=== PATIENT | female | born 2000 | race Caucasian/White ===

== ENCOUNTER 2024-06-09 14:56 | Emergency (ER) | payer OTHER, SELFPAY ==
[2024-06-09 14:58] VITALS: BP 146/95
--- NOTE | 2024-06-09 16:02 | ED.GENMED ---
History of Present Illness
General
Chief Complaint: Abdominal Pain
Source: patient
Exam Limitations: none
Time Seen by Provider: 06/09/24 15:51
Nursing documentation reviewed up to this point in time: agreed with
History of Present Illness
History of Present Illness:
Patient to ED with complaint of left sided abdominal pain. States she developed diarrhea on Tuesday. Since then no BM. Reports bloating and left sided burning. Denies fever/chill, vomiting. Brought to ED by sister for eval. She was seen her
approx 1 year ago with similar. Abd. CT= descending colitis. SHe was then placed on Augmentin and discharged home. No issues until this pst Tuesday.
Past History
Past History
ED Past Medical History: Other (Low blood pressure)
ED Past Surgical History: None
Social History
Tobacco: Non-smoker
Alcohol: Occasional
Drug: None
Personal: Single
Living: with family
Employment: Student (College student, [employer])
Family History
Family History: Other (Noncontributory)
Review of Systems
Review of Systems
Allergies reviewed?: Yes
All Other Systems: ROS reviewed and negative except as documented in HPI and ROS
Constitutional: Reports no symptoms
EENT: Reports no symptoms
Respiratory: Reports no symptoms
Cardiac: Reports no symptoms
ABD/GI: Reports abdominal pain (left sided abd. pain)
: Reports no symptoms
Musculoskeletal: Reports no symptoms
Skin: Reports no symptoms
Neurological: Reports no symptoms
Psychiatric: Reports no symptoms
Phy Exam
General Physical Exam
General Presentation: well appearing and no apparent distress
General age: appears stated age
General Skin: warm and dry
General Habitus: normal
Cardiovascular Exam
Cardiovascular Exam: regular rate/rhythm and no edema
Gastrointestinal Exam
Gastrointestinal Exam: normal bowel sounds, soft, no organomegaly and non distended
Palpation: left upper quadrant: Moderate tenderness, left lower quadrant: Moderate tenderness, right upper quadrant: Moderate tenderness and right lower quadrant: Minimal tenderness
Musculoskeletal Exam
Musculoskeletal Exam: full ROM and neuro vasc intact
Skin Exam
Skin Exam: normal color, warm/dry and no rash
Psychiatric Exam
Psychiatric Exam: normal mood/affect
Course
Orders/Labs/Results
Orders:
Orders
06/09/24 16:00
CT Abd/pel W Iv And Oral Contr Urgent
Comment:
Reason For Exam: left abd. pain
Iohexol [Omnipaque] See Protocol PO NOW STA
Test Result ONCE
06/09/24 16:14
Complete Blood Count/With Diff Urgent
Comprehensive Metabolic Panel Urgent
HCG, Serum Qualitative Screen Urgent
Lipase Urgent
Urinalysis Reflex To Culture Urgent
Date Specimen was Collected: 06/09/24
Time Specimen was Collected: 16:03
Urine Microscopic Reflex Cult Urgent
Abnormal Lab Results
06/09/24
16:14
Absolute Monos (auto) 0.7 H 10^3/uL
(0.1-0.6)
Monocytes % 12.5 H %
(1.7-9.3)
AST 39 H U/L
(14-36)
ALT 49 H U/L
(0-35)
Ur Occult Blood Reflex Trace A
(Negative)
Urine Urobilinogen 2+ A
(Neg - 1+)
Urine Bacteria (Reflex) Few A
(Negative)
06/09/24 16:14
06/09/24 16:14
Vital Signs
Initial and Last Documented VS:
Initial Vital Signs
Temp Pulse Resp BP Pulse Ox
98.6 F 102 16 146/95 98
06/09/24 14:58 06/09/24 14:58 06/09/24 14:58 06/09/24 14:58 06/09/24 14:58
Last Documented Vital Signs
Temp Pulse Resp BP Pulse Ox
98.6 F 96 16 128/84 98
06/09/24 14:58 06/09/24 19:23 06/09/24 20:00 06/09/24 19:23 06/09/24 19:23
MDM/Problems Addressed
Differential Diagnosis Includes:
Patient to ED with compliant of abd. bloating, left sided abd. discomfort. Labs, CT reviewed. + Enteritis. Discussed findings with her. Will discharge home, recommend bland diet, increased fluid intake. Will follow upwith PCP. Given number for
GI follow up. Given instructions on s/s to return to ED and she is agreeable to plan.
*Radiology
Radiology exam reviewed: radiology read reviewed
*Pulse Oximetry
Patient hypoxic: no
*Critical Care Note
Total Time (30-74mins, 75-104mins- exclusive of procedures): Not Applicable
ED Attending Note
-
Portions of this chart may have been created with voice recognition software.� Occasional wrong word or��sound alike� substitutions may have occurred due to the inherent limitations of voice recognition software.
Discharge Plan
Departure
Patient Disposition: Home (Routine Discharge)
Date of Disposition: 06/09/24
Time of Disposition: 19:52
Patient with high blood pressure during this ER visit?: No
Condition: Good
Covid-19: Not Applicable
Discharge Problem:
Enteritis
Instructions: [place] Diet, Acute Diarrhea
Prescriptions:
No Action
levonorgestrel-ethinyl estrad [Junito (28)] 1 EACH tablet
1 ea PO DAILY
ibuprofen 600 MG tablet
600 mg PO QIDPRN PRN (Reason: pain, fever, take with food.) Qty: 30 0RF
Referrals:
Alida Marina MD [Active] - Next open appointment
UNKNOWN - PT DOES,NOT KNOW [Family Provider] -
Activity Restrictions/Additional Instructions:
Return to the emergency department immediately for any changes in/worsening of your symptoms
Interventions
Interventions:
*Risk Screen - Suicide Last Done: 06/09/24 14:58
*General Assessment Last Done: 06/09/24 15:58
*Neglect/Abuse Screening Last Done: 06/09/24 14:58
ED- Fall Risk Assessment Last Done: 06/09/24 15:56
*Nursing Disposition Last Done: 06/09/24 20:15
TJ-Wuttfn-Wngqjbavyf Assessment Last Done: 06/09/24 15:56
Discharge Date and Time
Discharge Date/Time: 06/09/24 20:16
Print Language: GREEK
[2024-06-09] MEDS: OMNIPAQUE 50 ML PO (16:15)
[2024-06-09 16:19] VITALS: BMI 25.2
[2024-06-09 16:25] LABS: % Basophils 0.6 % (0-2); % Eosinophils 2.9 % (0-6); % Immature Granulocytes 0.2 % (0-0.5); % Monocytes 12.5 % (1.7-9.3); % Neutrophils 58.8 % (42.2-75.2); Absolute Eosinophils 0.2 10^3/uL (0-0.7); Absolute Lymphocytes 1.4 10^3/uL (1.2-3.4); Absolute Monocytes 0.7 10^3/uL (0.1-0.6); Absolute Neutrophils 3.2 10^3/uL (1.4-6.5); Hematocrit 41.1 % (37.0-47.0); Mean Corp Hgb Conc. 34.1 g/dL (33.0-37.0); Mean Corpuscular Hgb 30.1 pg (27.0-31.0); Mean Corpuscular Volume 88.4 fL (81.0-99.0); Mean Platelet Volume 9.8 fL (7.4-10.4); Nucleated Red Blood Cells % 0 %; Platelet Count 223 10^3/uL (130-400); Red Blood Cell Count 4.65 10^6/uL (4.20-5.40); Red Cell Dist. Width 11.9 % (11.5-14.5); White Blood Cell Count 5.5 10^3/uL (4.8-10.8)
[2024-06-09 16:28] LABS: Urine Albumin Negative (Neg - Trace); Urine Bilirubin Negative (Negative); Urine Character Clear (Clear); Urine Color Yellow; Urine Glucose Negative (Negative); Urine Ketone Negative (Negative); Urine Leukocyte Negative (Negative); Urine Nitrite Negative (Negative); Urine Occult Blood Trace (Negative); Urine Urobilinogen 2+ (Neg - 1+)
[2024-06-09 16:36] LABS: HCG, Serum Qualitative Screen Negative
[2024-06-09 16:40] LABS: ALT (SGPT) 49 U/L (0-35); AST (SGOT) 39 U/L (14-36); Alkaline Phosphatase 65 U/L (38-126); Blood Urea Nitrogen 10 mg/dl (7-17); Calcium 8.8 mg/dl (8.4-10.2); Carbon Dioxide 29 mmol/L (22-30); Chloride 102 mmol/L (98-107); Estimated Creatinine Clearance 116 ml/min; Glucose 91 mg/dl (70-99); Lipase 50 U/L (23-300); Potassium 3.8 mmol/L (3.5-5.1); Sodium 139 mmol/L (135-145); Total Bilirubin 0.5 mg/dl (0.2-1.3); Total Protein 6.7 g/dl (6.3-8.2); eGFR > 60.00
[2024-06-09 16:52] LABS: Urine Bacteria Few (Negative); Urine Red Blood Cell 0-2 /HPF (0-2); Urine White Cell 0-2 /HPF (0-5)
[2024-06-09 19:23] VITALS: BP 128/84
== END 2024-06-09 20:16 | disposition home or self-care (01) ==
LOC: EMR 14:56
PROVIDERS: Nurse Practitioner; EMERGENCY PHYSICIAN Emergency Medicine
DX: K52.9 Noninfective gastroenteritis and colitis, unspecified (principal)
CPT/HCPCS: 99284; 74177; 80053; 81003; 81015; 83690; 84703; 85025; Q9967

== ENCOUNTER 2025-03-10 06:22 | Emergency (ER) | payer OTHER, SELFPAY ==
[2025-03-10 06:25] VITALS: BP 124/73
[2025-03-10 06:44] VITALS: BMI 24.6
--- NOTE | 2025-03-10 07:02 | ED.GENMED ---
History of Present Illness
General
Chief Complaint: Rabies
Source: patient
Time Seen by Provider: 03/10/25 07:00
History of Present Illness
History of Present Illness:
24-year-old female presenting to the ER for her third rabies vaccine. Patient received the initial 2 at [facility]. Patient was bit by a dog on the left lower extremity. Completed the antibiotics given to her. She has no other complaints
at this time.
Past History
Past History
ED Past Medical History: Other (Low blood pressure)
ED Past Surgical History: None
Social History
Tobacco: Non-smoker
Alcohol: Occasional
Drug: None
Personal: Single
Living: with family
Employment: Student (College student, [employer])
Family History
Family History: Other (Noncontributory)
Review of Systems
Review of Systems
All Other Systems: ROS reviewed and negative except as documented in HPI and ROS
Phy Exam
Physical Exam
Physical Exam:
GENERAL: Alert , in no apparent distress
EYE: conjunctiva clear
Head: Normocephalic atraumatic
NECK: Supple,
ENT: mmm.
LUNGS: no acute respiratory distress
NEUROLOGICAL: Alert and oriented
SKIN: Warm and dry, Well-healing small puncture wound to the left anterior lower extremity without any surrounding erythema
MUSCULOSKELETAL: well perfused.
PSYCH: Normal and appropriate interaction.
Scores
Heart Failure Risk
Heart Failure Risk Score: Not Applicable
Heart Score for Chest Pain Patients
STEMI patient?: Not applicable
Withdrawal Assessment of Alcohol
Withdrawal Assessment Completed?: Not applicable
Course
Orders/Labs/Results
Orders:
Orders
03/10/25 07:02
Rabies Vaccine (Pcec)/Pf [Rabavert Rabies Vacc W-Diluent] 2.5 unit IM .ONCE ONE
Vital Signs
Initial and Last Documented VS:
Initial Vital Signs
Temp Pulse Resp BP Pulse Ox
98.2 F 75 18 124/73 99
03/10/25 06:25 03/10/25 06:25 03/10/25 06:25 03/10/25 06:25 03/10/25 06:25
Last Documented Vital Signs
Temp Pulse Resp BP Pulse Ox
98.2 F 75 18 124/73 99
03/10/25 06:25 03/10/25 06:25 03/10/25 06:25 03/10/25 06:25 03/10/25 07:03
MDM/Problems Addressed
MDM/Problems Addressed:
Patient presenting the ER for her third rabies vaccine. Bite appears to be well-healing without sign of infection. Third rabies vaccine given, patient stable for discharge and will return to the ER in 1 week for fourth and final rabies series
vaccine.
*Pulse Oximetry
SaO2: 99
Oxygen Mode of Delivery: Room air
Patient hypoxic: no
*Critical Care Note
Total Time (30-74mins, 75-104mins- exclusive of procedures): Not Applicable
ED Attending Note
-
Portions of this chart may have been created with voice recognition software.� Occasional wrong word or��sound alike� substitutions may have occurred due to the inherent limitations of voice recognition software.
Discharge Plan
Departure
Patient Disposition: Home (Routine Discharge)
Date of Disposition: 03/10/25
Time of Disposition: 07:02
Patient with high blood pressure during this ER visit?: No
Discharge Problem:
Encounter for immunization
Prescriptions:
No Action
levonorgestrel-ethinyl estrad [Junito (28)] 1 EACH tablet
1 ea PO DAILY
ibuprofen 600 MG tablet
600 mg PO QIDPRN PRN (Reason: pain, fever, take with food.) Qty: 30 0RF
Stand Alone Forms: Rabies Vaccine Post Exp Dosing
Interventions
Interventions:
*Risk Screen - Suicide Last Done: 03/10/25 06:24
*General Assessment Last Done: 03/10/25 06:24
*Neglect/Abuse Screening Last Done: 03/10/25 06:24
Discharge Date and Time
Print Language: KYRGYZ
[2025-03-10] MEDS: RABAVERT RABIES VACC W-DILUENT 2.5 UNIT IM (07:20)
== END 2025-03-10 07:30 | disposition home or self-care (01) ==
LOC: EMR 06:22
PROVIDERS: EMERGENCY PHYSICIAN Emergency Medicine
DX: Z23 Encounter for immunization (principal); Z20.3 Contact with and (suspected) exposure to rabies
CPT/HCPCS: 99281; 90471; 90675

== ENCOUNTER 2025-03-17 15:49 | Emergency (ER) | payer OTHER, SELFPAY ==
[2025-03-17 15:54] VITALS: BP 131/73
--- NOTE | 2025-03-17 17:33 | ED.GENMED ---
History of Present Illness
General
Chief Complaint: Rabies
Time Seen by Provider: 03/17/25 17:33
History of Present Illness
History of Present Illness:
FOCUSED PAST MEDICAL HISTORY
- No significant past medical history
REVIEW OF OLD RECORDS
- Patient also had rabies vaccination on 03/10/2025
Note:
CHIEF COMPLAINT(S)
Rabies prophylaxis following a dog bite.
HISTORY OF PRESENT ILLNESS
The patient is a 24-year-old female who presents for the final rabies vaccination. She reports being bitten by a dog two weeks ago. The dog was a stray, and no contact was made with the cushion assembler afterward. The patient has been following the rabies
vaccination schedule 0-3-7-14 and is here for her last shot. She reports no symptoms or issues related to the bite, and physical examination indicates no signs of infection at the bite site.
PHYSICAL EXAM
-General: Well appearing in no distress
-HEENT: Moist oral mucosa
-Neurologic: Excellent strength all extremities, no obvious coordination deficits
-Psychiatric: Appropriate mental status, normal insight and judgement
-Extremities: Nontender, no edema, moves all extremities equally
- Skin: Healing bite wound to the left nash with no evidence of infection, no cellulitis, no warmth
PLAN
Proceed with administering the final rabies vaccination as scheduled.
DIFFERENTIAL DIAGNOSIS
The Differential Diagnosis includes, in no particular order and is not limited to:
- Rabies
- Localized infection at the bite site
- Tetanus
- Pasteurella infection
- Capnocytophaga infection
- Cellulitis
- Anxiety about dog bite exposure
- Sepsis secondary to infection
- Allergic reaction to bite or vaccine
- Bartonella infection
SUMMARY OF ENCOUNTER
The patient was seen for completion of rabies prophylaxis following a stray dog bite. She has been following the recommended vaccination schedule properly, with today being the last dose required. Examination shows no infection signs at the bite
site.
MEDICATION RECONCILIATION
Rabies vaccination administered as part of the prophylactic schedule following animal exposure.
MEDICAL DECISION MAKING
- Complexity of Data Reviewed: Chronic conditions affecting care are absent in this case.
Data:
Category 1: Rabies vaccination was ordered and reviewed for administration today.
Risk:
Rabies vaccination management due to exposure risk from an unknown dog. No complications from the previous vaccine, no prescription drug management required.
DIAGNOSIS
- Rabies exposure risk (Z20.3)
- Other specified contact with and exposure to other mammals (W55.8)
Disposition:
SUMMARY OF ENCOUNTER
The patient presented in the emergency department for a final rabies vaccination following a dog bite incident occurring two weeks prior. The bite area on the left forearm was examined and showed no signs of infection. The patient was administered
the final dose of the rabies vaccine as per the vaccination schedule without any complications.
PLAN
The plan is to complete the rabies prophylaxis series by administering the final dose of the vaccine. The patient has been compliant with the vaccination schedule and regularly monitored for any adverse reactions or signs of infection.
MEDICAL DECISION MAKING
- Complexity of Data Reviewed:
Rabies exposure risk (Z20.3) was addressed, consistent with the need for completion of rabies prophylaxis. Differential Diagnosis included rabies, localized infection, tetanus, pasteurella infection, capnocytophaga infection, cellulitis, anxiety
about dog bite exposure, sepsis, allergic reaction, and bartonella infection; however, no signs of infection were observed, reducing these concerns at this time.
- Data:
Category 1:
The scheduled rabies vaccination was ordered and administered today.
- Risk:
Management of rabies vaccination was determined essential due to potential exposure risk from the stray dog incident.
DIAGNOSIS
- Rabies exposure risk (Z20.3)
- Other specified contact with and exposure to other mammals (W55.8)
Past History
Past History
ED Past Medical History: Other (Low blood pressure)
ED Past Surgical History: None
Social History
Tobacco: Non-smoker
Alcohol: Occasional
Drug: None
Personal: Single
Living: with family
Employment: Student (College student, [employer])
Family History
Family History: Other (Noncontributory)
Phy Exam
Physical Exam
Physical Exam:
See HPI
Course
Orders/Labs/Results
Orders:
Orders
03/17/25 17:34
Rabies Vaccine (Pcec)/Pf [Rabavert Rabies Vacc W-Diluent] 2.5 unit IM .ONCE ONE
Vital Signs
Initial and Last Documented VS:
Initial Vital Signs
Temp Pulse Resp BP Pulse Ox
37.2 C 72 18 131/73 98
03/17/25 15:54 03/17/25 15:54 03/17/25 15:54 03/17/25 15:54 03/17/25 15:54
Last Documented Vital Signs
Temp Pulse Resp BP Pulse Ox
37.2 C 72 18 131/73 98
03/17/25 15:54 03/17/25 15:54 03/17/25 15:54 03/17/25 15:54 03/17/25 17:34
*Pulse Oximetry
SaO2: 98
Oxygen Mode of Delivery: Room air
Patient hypoxic: no
*Critical Care Note
Total Time (30-74mins, 75-104mins- exclusive of procedures): Not Applicable
ED Attending Note
-
Portions of this chart may have been created with voice recognition software.� Occasional wrong word or��sound alike� substitutions may have occurred due to the inherent limitations of voice recognition software.
Discharge Plan
Departure
Patient Disposition: Home (Routine Discharge)
Date of Disposition: 03/17/25
Time of Disposition: 17:37
Patient with high blood pressure during this ER visit?: Yes
Discharge Problem:
Need for rabies vaccination
Instructions: Animal Bites (DC), BLOOD PRESSURE
Prescriptions:
No Action
levonorgestrel-ethinyl estrad [Lillow (28)] 1 EACH tablet
1 ea PO DAILY
ibuprofen 600 MG tablet
600 mg PO QIDPRN PRN (Reason: pain, fever, take with food.) Qty: 30 0RF
Stand Alone Forms: Rabies Vaccine Post Exp Dosing
Activity Restrictions/Additional Instructions:
This completes your rabies vaccination series. Return here if worse or other concerns.
Interventions
Interventions:
*Risk Screen - Suicide Last Done: 03/17/25 15:54
*General Assessment Last Done: 03/17/25 15:54
*Neglect/Abuse Screening Last Done: 03/17/25 15:54
*ED- Fall Risk Assessment Last Done: 03/17/25 15:54
*ED COVID-19 Vaccine History Last Done: 03/17/25 15:54
Discharge Date and Time
Print Language: TURKMEN
[2025-03-17] MEDS: RABAVERT RABIES VACC W-DILUENT 2.5 UNIT IM (17:57)
== END 2025-03-17 18:10 | disposition home or self-care (01) ==
LOC: EMR 15:49
PROVIDERS: EMERGENCY PHYSICIAN Emergency Medicine
DX: Z20.3 Contact with and (suspected) exposure to rabies (principal); Z23 Encounter for immunization
CPT/HCPCS: 99281; 90471; 90675